=== PATIENT | female | born 1995 | race Caucasian/White ===

== ENCOUNTER 2016-12-22 12:20 | Emergency (ER) | payer SELFPAY | END 2016-12-22 13:41 | disposition left against medical advice (07) | LOC: ED 12:20 | DX: R55 Syncope and collapse (principal); Z53.21 Procedure and treatment not carried out due to patient leaving prior to being seen by health care provider ==

== ENCOUNTER 2019-03-02 21:41 | Outpatient (CLI) | payer OTHER, MEDICAID ==
[2019-03-02] MEDS ORDERED: LACTATED RINGERS 1,000 ML IV ONE (22:03)
[2019-03-02 23:05] LABS: Hematocrit 31.8 % (30.3-42.9); Mean Corpuscular HGB Conc 35 % (30-34); Mean Corpuscular Volume 87 fl (79-97); Platelet Count 240 K/mm3 (140-440); Red Blood Count 3.65 M/mm3 (3.65-5.03); Red Cell Distribution Width 13.9 % (13.2-15.2)
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
[2019-03-03 01:25] VITALS: BP 103/52
== END 2019-03-03 01:43 | disposition home or self-care (01) ==
LOC: TRG 21:41
PROVIDERS: ATTEND Obstetrics & Gynecology
DX: O9A.212 Injury, poisoning and certain other consequences of external causes complicating pregnancy, second trimester (principal); R10.9 Unspecified abdominal pain; O32.1XX0 Maternal care for breech presentation, not applicable or unspecified; O47.02 False labor before 37 completed weeks of gestation, second trimester; V49.50XA Passenger injured in collision with unspecified motor vehicles in traffic accident, initial encounter; Z3A.26 26 weeks gestation of pregnancy; Y93.89 Activity, other specified; Y92.89 Other specified places as the place of occurrence of the external cause; Y99.8 Other external cause status
CPT/HCPCS: 36415; 59025; 76816; 76819; 85027; 96360; J7120